=== PATIENT | male | born 2000 | race Two or more races ===

== ENCOUNTER 2019-04-17 21:55 | Emergency (ER) | payer SELFPAY ==
[~2019-04-17] VITALS: Ht 172.7 cm; Wt 81.6 kg
[2019-04-17 22:19] VITALS: BP 128/93
== END 2019-04-18 00:02 | disposition left against medical advice (07) ==
LOC: ER 22:00
DX: T23.001A Burn of unspecified degree of right hand, unspecified site, initial encounter (principal); Z53.21 Procedure and treatment not carried out due to patient leaving prior to being seen by health care provider; X58.XXXA Exposure to other specified factors, initial encounter; Y93.89 Activity, other specified; Y99.8 Other external cause status; Y92.89 Other specified places as the place of occurrence of the external cause